=== PATIENT | male | born 1980 | race Caucasian/White ===

== ENCOUNTER 2020-01-07 10:36 | Emergency (ER) | payer SELFPAY ==
[~2020-01-07] VITALS: Ht 182.8 cm; Wt 104.3 kg
[2020-01-07] MEDS ORDERED: CYCLOBENZAPRINE10 MG PO (12:42)
[2020-01-07] MEDS ORDERED: NORCO 5-325 TA1 EACH PO (12:42)
== END 2020-01-07 12:32 | disposition home or self-care (01) ==
LOC: ED 10:36
DX: S89.92XA Unspecified injury of left lower leg, initial encounter (principal); X58.XXXA Exposure to other specified factors, initial encounter; Y93.89 Activity, other specified; Y92.89 Other specified places as the place of occurrence of the external cause; Y99.8 Other external cause status

== ENCOUNTER 2021-03-07 13:57 | Emergency (ER) | payer OTHER ==
[~2021-03-07] VITALS: Ht 182.8 cm; Wt 111.1 kg
[~2021-03-07 13:57] MED LIST: CYCLOBENZAPRINE10 MG PO; NORCO 5-325 TA1 EACH PO
== END 2021-03-07 16:53 | disposition home or self-care (01) ==
LOC: ED 13:57
DX: S61.213A Laceration without foreign body of left middle finger without damage to nail, initial encounter (principal); W31.89XA Contact with other specified machinery, initial encounter; Y93.89 Activity, other specified; Y92.89 Other specified places as the place of occurrence of the external cause; Y99.8 Other external cause status

== ENCOUNTER → 2023-09-02 | Outpatient (CLI) | payer OTHER ==
[2023-09-02 08:58] LABS: HEMATOCRIT 46.2 % (42.0-52.0); MEAN CELL VOLUME 88.5 fl (80.0-94.0); MEAN CORPUSCULAR HGB 28.9 pg (27.0-31.0); MEAN CORPUSCULAR HGB CONC 32.7 g/dl (33.0-37.0); RED BLOOD COUNT 5.22 10*6/uL (4.50-5.90); RED CELL DISTRI WIDTH 12.7 % (0-14.5); WHITE BLOOD COUNT 6.4 10*3/uL (4.8-10.8)
[2023-09-02 10:14] LABS: ALKALINE PHOSPHATASE 93 U/L (46-116); BUN 15 mg/dl (9-23); CHLORIDE 104 mmol/L (98-107); CHOLESTEROL 222 mg/dL (<200); FREE T4 1.13 ng/dl (0.89-1.76); LDL CHOLESTEROL 141 mg/dL (9-159); POTASSIUM 4.5 mmol/L (3.4-5.1); SGPT/ALT 69 U/L (5-49); TOTAL PROTEIN 7.3 gm/dL (6.0-8.0); TRIGLYCERIDES 163 mg/dl (<150)
[2023-09-02 10:16] LABS: VITAMIN D, 25-HYDROXY 29.8 ng/mL (30-100)
[2023-09-05 19:05] LABS: TESTOSTERONE FREE, (DIRECT) 7.3 pg/mL (6.8-21.5)
== END | disposition home or self-care (01) ==
LOC: LAB 08:24
PROVIDERS: ATTEND Family Medicine
DX: Z13.220 Encounter for screening for lipoid disorders (principal); R53.83 Other fatigue; E55.9 Vitamin D deficiency, unspecified; E29.1 Testicular hypofunction; R05.9 Cough, unspecified; Z72.0 Tobacco use

== ENCOUNTER → 2023-09-14 | Outpatient (CLI) | payer OTHER ==
[2023-09-15 08:10] LABS: HBSAG Negative (Negative); HEP B CORE AB, IGM Negative (Negative); HEPATITIS C ANTIBODY Non Reactive (Non Reactive)
== END | disposition home or self-care (01) ==
LOC: LAB 14:14
PROVIDERS: ATTEND Family Medicine
DX: R74.01 Elevation of levels of liver transaminase levels (principal)

== ENCOUNTER → 2023-09-23 | Outpatient (CLI) | payer OTHER | END | disposition home or self-care (01) | LOC: US 09-20 10:30 | PROVIDERS: ATTEND Family Medicine | DX: N28.89 Other specified disorders of kidney and ureter (principal); R74.01 Elevation of levels of liver transaminase levels ==

== ENCOUNTER → 2024-11-02 | Outpatient (CLI) | payer OTHER ==
[2024-11-04 10:07] LABS: TB1 Ag VALUE 0.08 IU/mL (.)
== END | disposition home or self-care (01) ==
LOC: LAB 10:26
PROVIDERS: Nurse Practitioner Family; ATTEND Family Medicine
DX: L30.9 Dermatitis, unspecified (principal)

== ENCOUNTER → 2024-11-27 | Outpatient (CLI) | payer OTHER | END | disposition home or self-care (01) | LOC: RAD 16:35 | PROVIDERS: ATTEND Nurse Practitioner Family | DX: M54.6 Pain in thoracic spine (principal) ==